=== PATIENT | male | born 1950 | race Caucasian/White ===

== ENCOUNTER 2024-01-15 16:37 | Emergency (ER) | payer OTHER ==
[2024-01-15] MEDS ORDERED: ALBUTEROL 2.5 MG/3 ML NEB SOL ONE (16:50)
[2024-01-15] MEDS ORDERED: IPRATROPIUM BROM 0.5MG/2.5ML ONE (16:50)
[2024-01-15 17:40] LABS: Absolute Eosinophils 0.1 K/uL (0-0.5); Absolute Lymphocytes (CBC) 0.7 K/uL (0.7-4.9); Absolute Monocytes 0.8 K/uL (0.1-1.3); Absolute Neutrophil 10.4 K/uL (1.8-8.0); Basophils % 0.3 % (0-1.3); Eosinophils % 1.1 % (0-4.4); Hematocrit 42.9 % (39.6-49.0); Hemoglobin 14.5 g/dL (13.6-17.9); Lymphocytes % 5.5 % (15.3-44.8); MCH 31.5 pg (27.0-35.0); MCHC 33.9 g/dL (32.0-36.0); MPV 9.4 fL (7.6-11.3); Monocytes % 6.6 % (3.3-12.3); Neutrophils % 86.5 % (41.7-73.7); Nucleated RBC Absolute Count 0.1 (0-0); Nucleated Red Blood Cells % 0.8 % (0-0); Platelets 189 thou/uL (152-406); RBC Red Blood Cell Count 4.61 M/uL (4.33-5.43); Red Cell Distribution Width 13.9 % (12.1-15.2)
--- NOTE | 2024-01-15 17:40 | RAD REPORT ---
EXAM DESCRIPTION: RAD - Chest Single View - 01/15/2024 4:58 pm CLINICAL HISTORY: SOB Chest pain. COMPARISON: <Comparisons> FINDINGS: Portable technique limits examination quality. Moderate pulmonary edema. The heart is moderately enlarged in size. No displaced fractures.Calcified pleural plaques. IMPRESSION: Moderate CHF pattern.
[2024-01-15 17:43] LABS: Albumin 3.9 g/dL (3.4-5.0); Bilirubin Direct 0.2 mg/dL (0-0.2); Bilirubin Indirect, Calculated 0.5 mg/dL (0.2-0.8); Bilirubin Total 0.7 mg/dL (0.2-1.0); Globulin 4.1 g/dL (2.3-3.5); Magnesium 2.2 mg/dL (1.6-2.4)
[2024-01-15 17:46] LABS: PT Prothrombin Time 11.8 SECONDS (9.4-12.5); Protime INR 1.06
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
[2024-01-15] MEDS ORDERED: VANCOMYCIN 1 GM/VIAL ONE (18:10)
[2024-01-15] MEDS ORDERED: ASPIRIN 81 MG CHEWABLE TABLET ONE (18:11)
[2024-01-15] MEDS ORDERED: CEFEPIME 2 GM VIAL ONE (18:11)
[2024-01-15] MEDS ORDERED: NA CHLORIDE 0.9% 100 ML ONE (18:11)
[2024-01-15] MEDS ORDERED: NA CHLORIDE 0.9% 250 ML ONE (18:11)
[2024-01-15 18:17] LABS: Arterial Blood Carboxyhemoglob 2.1 % (0-1.5); Blood Gas Oxyhemoglobin 66.5 % (94-97); Blood Gas THB 15.5 g/dl (12-18); Blood O2 Saturation 69.3 % (92-98.5)
[2024-01-15] MEDS ORDERED: LEVALBUTEROL 1.25 MG/3 ML NEB ONE (19:44)
[2024-01-15 19:56] LABS: Blood Morphology Comment NOT SEEN (NOT SEEN); Platelet Estimate ADEQ; White Blood Cell Scan OK (OK)
[2024-01-15 22:59] VITALS: TEMP 97.7
[2024-01-15 23:02] VITALS: BP 171/71; O2SAT 96
--- NOTE | 2024-01-16 14:08 | EKG ---
Test Date: 2024-01-15 Test Time: 16:38:26 Coverage Specialist Rn: JESSICA MEASUREMENT RESULTS: Intervals: Rate: 90 MO: 176 QRSD: 86 QT: 378 QTc: 462 [place]: P: 75 MO: 176 QRS: 44 T: -1 INTERPRETIVE STATEMENTS: Sinus rhythm with frequent and consecutive premature ventricular complexes Nonspecific ST and T wave abnormality Prolonged QT Abnormal ECG No previous ECG available for comparison Electronically Signed On 01-16-24 14:05:32 CDT by Avinash Shepherd
== END 2024-01-15 22:48 ==
LOC: ER 16:37
DX: R09.02 Hypoxemia (principal); J81.0 Acute pulmonary edema; I10 Essential (primary) hypertension; E11.9 Type 2 diabetes mellitus without complications; F17.210 Nicotine dependence, cigarettes, uncomplicated; Z79.01 Long term (current) use of anticoagulants
CPT/HCPCS: 96365; 93005; 87040 ×2; 85025; 80048; 36415; 83735; 85610; 80076; 83605 ×2; 84484; 83880; 71045; 94640; 82805; 99285; 36600; J7614; J7613; J7644; J0692; J7050